=== PATIENT | male | born 1950 | race Caucasian/White ===

== ENCOUNTER 2017-01-24 14:41 | Emergency (ER) | payer SELFPAY ==
[2017-01-24 15:19] LABS: Hematocrit 46.4 % (42.0-52.0); Hemoglobin 15.4 gm/dL (13.5-18.0); Mean Cell Volume 89.4 fl (78-100); Mean Corpuscular Hemoglobin 29.7 pg (27-31); Mean Corpuscular Hgb Conc 33.2 g/dl (32-36); Mean Platelet Volume 9.7 fl (6.0-9.5); Neutrophil # 5.9 K/mm3 (1.3-6.0); Neutrophil % 78.3 % (42-75.0); Platelet Count 197 K/mm3 (150-450); Red Blood Count 5.19 M/mm3 (4.7-6.0); Red Cell Distribution Width 13.2 % (11.5-14.0); White Blood Count 7.6 K/mm3 (4.0-10.5)
[2017-01-24] MEDS ORDERED: IBUPROFEN 600 MG TABLET PO ONE (15:29)
[2017-01-24] MEDS ORDERED: IBUPROFEN 600 MG TABLET ONE (15:29)
[2017-01-24 15:36] LABS: ALT 207 U/L (19-67); AST 285 U/L (0-48); Albumin * 3.8 gm/dl (3.4-5.0); Alkaline Phosphatase * 101 U/L (50-170); Anion Gap 14.2 mmol/L (6.8-13.8); BUN/Creatinine Ratio 12.6 (9.0-21.6); Bilirubin, Total 2.5 mg/dL (0.0-1.1); Blood Urea Nitrogen 16 mg/dL (6-23); Ca. Corrected For Albumin 10.5 mg/dL (8.4-10.2); Calcium * 10.7 mg/dL (7.9-10.9); Chloride 103 mmol/L (97-106); Glucose * 121 mg/dL (70-110); Potassium 4.2 mmol/L (3.4-4.6); Sodium 141 mmol/L (132-142); Total Protein 7.9 gm/dL (6.2-8.2)
[2017-01-24 15:37] LABS: Troponin I Less than 0.017 ng/ml (0.00-0.10)
--- OUTSIDE RECORDS SUMMARY | 2017-01-24 15:38 | XMS REPORT | Continuity of Care Document ---
:1950 Author Organization [facility] ([facility]) Address [address] [place] [address] Phone [phone] Care Team Providers Name Role Phone Provider, No-Primary Care Primary Care Provider Unavailable Source Comments This disclosure is being made pursuant to the Care Everywhere program, applicable federal and state laws, and may not contain all informaitonavailable regarding this patient.[facility] ([facility]) Active Allergies and Adverse Reactions No Known Allergies Current Medications Prescription Sig. Disp. Refills Start Date End Date Status ofloxacin 0.3 % otic instill 5 Drops 5 mL 0 09/12/2014 Active solution into left ear 2 times daily. Indications: OTITIS EXTERNA hydrochlorothiazide 12.5 Take 1 Tab by 30 Tab 1 09/12/2014 Active mg tablet mouth daily. Indications: HYPERTENSION Active Problems Not on file Social History Tobacco Use Types Packs/Day Years Used Date Never Assessed Last Filed Vital Signs Vital Sign Reading Time Taken Blood Pressure 139/92 10/18/2015 4:09 PM ORGANIZATIONAL CONSULTANT Pulse 80 10/18/2015 4:09 PM ORGANIZATIONAL CONSULTANT Temperature 36.8 C (98.2 F) 10/18/2015 4:09 PM ORGANIZATIONAL CONSULTANT Respiratory Rate 16 10/18/2015 4:09 PM ORGANIZATIONAL CONSULTANT Height - - Weight 108.5 kg (239 lb 3.2 oz) 10/18/2015 4:09 PM ORGANIZATIONAL CONSULTANT Body Mass Index - - Oxygen Saturation - - Plan of Care Health Maintenance Due Date Last Done Comments HCV Screening 1950 Hepatitis B Vaccine (1 of 3 - Primary Series) 1950 Tdap Vaccine 12/07/1962 Lipid Disorder Screening 12/07/1969 Td Vaccine 12/07/1969 Colonoscopy 12/07/2001 Prostate Cancer Screening 12/07/2001 Zoster Vaccine 2011 Influenza Vaccine: Seasonal (#1) 04/20/2016 Results from Last 3 Months Not on file
--- OUTSIDE RECORDS SUMMARY | 2017-01-24 15:38 | XMS REPORT | Continuity of Care Document ---
:1950 Author Organization [facility] Address [place] [address] Care Team Providers Name Role Phone Unavailable Primary Care Provider Unavailable Source Comments This disclosure is being made pursuant to the [employer] program and maynot contain all information available regarding this patient.[facility] Active Allergies and Adverse Reactions Not on File Current Medications Be aware that medications may not be up to date as of this document. Alwaysverify current medications with the patient. Not on file Active Problems Not on file Social History Tobacco Use Types Packs/Day Years Used Date Never Assessed Plan of Care Health Maintenance Due Date Last Done Comments Retired-Pertussis Vaccine Adult 12/07/1970 Retired-Tetanus Vaccine Adult 12/07/1970 Colonoscopy 12/07/2001 Well Adult Visit 12/07/2001 Zoster Vaccine 60+ 2011 Retired-INFLUENZA VACCINE 05/21/2015 Results from Last 3 Months Not on file
--- NOTE | 2017-01-24 19:27 | ERNOTE ---
Chest Pain/Cardiac HPI Date of Service: 01/24/17 Chief Complaint: Chest Pain Time Seen by Provider: 01/24/17 14:55 Source: patient Exam Limitations: no limitations Immunizations: IMMUNIZATION HX History of Influenza Vaccine No Hx Pneumococcal Vaccination No Allergies/Adverse Reactions: Allergies No Known Allergies Allergy (Unverified 01/24/17 14:53) Home Medications: HOME MEDICATIONS NK [No Home Medication] 01/24/17 [Last Taken Unknown] Narrative: Patient presents for evaluation of chest pain. he has been having this constantly since 6am. Her localizes it with a finger to his left anterior chest. He relates this pain has been constant since this morning, worse with palpation, movement and deep breathing. He relates he was working in the garden yesterday but does not recall a specific injury. He denies any radiation. No SOB. No other chest pains. Has not seen anyone else for this. No vomiting. No abdominal pain. Timing: constant Severity/Quality: moderate Location: left chest Chest Pain Radiation: no radiation Activities at Onset: none Modifying Factors - Improves: Present: nothing Modifying Factors - Worsens: Present: breathing, movement, other - palpation Associated Symptoms: Absent: syncope, cough, shortness of breath, fever/chills, nausea, vomiting, abdominal pain Prior Chest Pain/Cardiac Workup: Reports: no prior cardiac workup Prior Treatment: Denies: recently seen Review of Systems - Review of Systems Constitutional: Absent: fever ENT: Absent: sore throat Respiratory: Present: See HPI Cardiology: Present: See HPI Gastrointestinal/Abdominal: Absent: abdominal pain Genitourinary: Absent: dysuria Musculoskeletal: Absent: back pain Skin: Absent: rash Neurological: Absent: weakness All Other Systems: All systems neg except as marked - Patient's Past Medical History Patient History - Medical: No pertinent hx Patient History - Cardiac/Respiratory: No pertinent hx Patient History - Cancer: No Hx of Cancer Patient History - Surgical Procedures: Other Patient History - Other: None - Social History Living Situations: home Psych History: No pertinent hx Alcohol Use: none Drug Use: none - Immunizations Hx Pneumococcal Vaccination: No History of Influenza Vaccine: No Physical Exam - Physical Exam General Appearance: Present: alert, no apparent distress Eye Exam: Normal inspection: bilateral, PERRL: bilateral Ears, Nose, Throat: Present: normal ENT inspection Neck: Present: normal inspection Respiratory: Present: no respiratory distress, normal breath sounds, no accessory muscle use, lungs clear, other - He has point anterior rib tenderness left CC junction. With palpation at this point location he jumps and has complete reproduction of his pain. Palpation of the chest wall completely reproduces his Sx. 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 Absent: motor weakness Skin Exam: Absent: skin rash ED Progress - Results and Orders Patient's Lab Results:: I have reviewed the patient's lab results. - Vital Signs Patient's Vital Signs:: I have reviewed the patient's vital signs. Vital Signs: Vital Signs 01/24/17 01/24/17 01/24/17 14:43 15:22 17:53 Temperature 36.7 C Pulse Rate 84 62 75 Respiratory 12 12 12 Rate Blood Pressure 166/98 140/100 163/115 O2 Sat by Pulse 95 95 95 Oximetry 01/24/17 18:20 Temperature Pulse Rate 80 Respiratory 18 Rate Blood Pressure 130/85 O2 Sat by Pulse 95 Oximetry - EKG EKG: NSR EKG read: Interp. by me EKG Comments: NSR rate 64. Non-specific changes, no STEMI. - X-Ray X-Ray #1 X-Ray: chest X-ray Comments: No acute process. Official report reviewed - CT/Ultrasound CT/Ultrasound Narrative: CT report reviweed. No PE US report reviewed. - Progress/Reassessment Chief Complaint: Chest Pain Progress Note-Subjective: 01/24/17 19:25 Pain completely reproducible. No STEMI, 2 trop negative well over 10 hours of continuous pain, nothign would suggest ACS. Nothing to suggest PE or aortoc dissection. he stopped him HTN meds but his BP came down nicely without treatment. No clear acute life threat found. He feels like going home, declines observation. D/W Dr Martini who will see the patient in the office. Stressed need for outpatient stress testing in the office. 01/24/17 19:34 Departure - Departure Clinical Impression: Chest wall pain Disposition: Home self-care Condition: Stable Instructions: Chest Wall Pain, [id number] Additional Instructions: Call Dr Martini's office tomorrow for an appointment. See your doctor this week for a re-check and to discuss stress testing. Ibuprofen. Return for increased pain, fever, trouble breathing or if your condition worsens or changes in any way.
[2017-01-24 20:11] VITALS: BP 146/116
== END 2017-01-24 19:44 | disposition home or self-care (01) ==
LOC: ER 14:41
DX: R07.89 Other chest pain (principal)

== ENCOUNTER 2017-03-15 14:43 | Emergency (ER) | payer SELFPAY ==
[2017-03-15] MEDS ORDERED: DIPHTH,PERTUSS(ACELL),TET VAC 0.5 ML VIAL IM ONE (14:54)
--- NOTE | 2017-03-15 15:09 | ERNOTE ---
Upper Extremity HPI - General Extremities Pain Location: 5th finger: right Time Seen by Provider: 03/15/17 14:58 Source: patient Exam Limitations: no limitations - Immun/Allergies/Home Medications Immunizations: IMMUNIZATION HX Immunizations Up to Date Yes History of Influenza Vaccine No Hx Pneumococcal Vaccination No Allergies/Adverse Reactions: Allergies Allergy/AdvReac Type Severity Reaction Status Date / Time No Known Allergies Allergy Verified 03/15/17 14:53 Home Medications: HOME MEDICATIONS Cephalexin Monohydrate [Keflex] 500 mg PO QID #15 cap 03/15/17 [Last Taken Unknown] oxyCODONE HCL/ACETAMINOPHEN [Percocet 5 MG/325 MG] 1 tab PO Q4H PRN #20 tab [Last Taken Unknown] - History of Present Illness Narrative: Patient is working at a [employer] and got his right little finger caught in the band of the saw and amputated his distal finger. Date (Duration): 03/15/17 Time (Timing): 14:00 Occurred: just prior to arrival Severity: mild Review of Systems - Review of Systems Constitutional: Absent: recent illness ENT: Absent: nasal drainage Respiratory: Absent: shortness of breath, cough Cardiology: Absent: chest pain Gastrointestinal/Abdominal: Absent: nausea, abdominal pain Genitourinary: Present: no symptoms reported Musculoskeletal: Present: See HPI Neurological: Absent: weakness, numbness - Patient's Past Medical History Patient History - Medical: No pertinent hx Patient History - Cardiac/Respiratory: No pertinent hx Patient History - Cancer: No Hx of Cancer Patient History - Surgical Procedures: Other Patient History - Other: None - Social History Living Situations: home Psych History: No pertinent hx Smoking Status: Never smoker Alcohol Use: none Drug Use: none - Immunizations Immunizations Up to Date: Yes Hx Pneumococcal Vaccination: No History of Influenza Vaccine: No Physical Exam - Physical Exam General Appearance: Present: wd/wn, alert, no apparent distress Respiratory: Present: no respiratory distress, normal breath sounds, no accessory muscle use, lungs clear Cardiovascular/Chest: Present: regular rate, rhythm, no murmur Extremity Exam: Present: normal except - - right fifth digit amputated distally , straight smooth wound surface, no bone exposed Neurological Exam: Present: alert, oriented, normal mood/affect Skin Exam: Present: normal color, warm/dry ED Progress - Vital Signs Patient's Vital Signs:: I have reviewed the patient's vital signs. Vital Signs: Vital Signs 03/15/17 14:49 Temperature 36.6 C Pulse Rate 88 Respiratory 16 Rate Blood Pressure 165/110 O2 Sat by Pulse 94 Oximetry - X-Ray X-Ray #1 X-Ray: finger - fifth right distal finger tip amputation Interpretation: Reviewed by me - Progress/Reassessment Chief Complaint: Hand Injury/Pain Progress Note-Subjective: 03/15/17 15:32 discussed with Crow Wilson, wet to dry dressing, give ancef IM and start keflex, follow up in office in two days Procedures Right 5th Digit Anesthesia: Marcaine 0.25%, Digital Block Departure Clinical Impression: Traumatic amputation of tip of finger of right hand - Departure Disposition: Home self-care Condition: Good Instructions: Traumatic Finger Amputation Additional Instructions: keep the finger dry and clean, take ibuprofen as needed for pain and the prescription pain medication if that does not help enough Referrals: Crow Wilson, PAC [[facility]] - 03/17/17 10:00 am Prescriptions: Cephalexin Monohydrate [Keflex] 500 mg PO QID #15 cap oxyCODONE HCL/ACETAMINOPHEN [Percocet 5 MG/325 MG] 1 tab PO Q4H PRN #20 tab PRN Reason: Pain
--- OUTSIDE RECORDS SUMMARY | 2017-03-15 15:10 | XMS REPORT | Continuity of Care Document ---
:1950 Author Organization [id number] [place] [address] Care Team Providers Name Role Phone Unavailable Primary Care Provider Unavailable Source Comments This disclosure is being made pursuant to the [employer] program and maynot contain all information available regarding this patient.[id number] Active Allergies and Adverse Reactions Not on [...]
[2017-03-15 15:15] VITALS: BP 139/96
[2017-03-15] MEDS ORDERED: ceFAZolin SODIUM 1 GM VIAL IM ONE (15:39)
[2017-03-15] MEDS ORDERED: ceFAZolin SODIUM 1 GM VIAL ONE (15:43)
== END 2017-03-15 16:15 | disposition home or self-care (01) ==
LOC: ER 14:43
PROC: 3E0T3BZ Introduction of Anesthetic Agent into Peripheral Nerves and Plexi, Percutaneous Approach (ICD-10-PCS; principal; 2017-03-15)
DX: S68.126A Partial traumatic metacarpophalangeal amputation of right little finger, initial encounter (principal); Z23 Encounter for immunization; W31.2XXA Contact with powered woodworking and forming machines, initial encounter; Y92.69 Other specified industrial and construction area as the place of occurrence of the external cause; Y99.0 Civilian activity done for income or pay

== ENCOUNTER 2017-03-17 11:59 | Day surgery (SDC) | payer SELFPAY ==
[~2017-03-17 11:59] MED LIST: RINGERS SOLUTION,LACTATED 1,000 ML IV PRN; ceFAZolin SODIUM 1 GM VIAL IV PRN
--- OUTSIDE RECORDS SUMMARY | 2017-03-17 12:14 | XMS REPORT | Continuity of Care Document ---
:1950 Author Organization [facility] [place] [address] Care Team Providers Name Role Phone Unavailable Primary Care Provider Unavailable Source Comments This disclosure is being made pursuant to the [employer] program and maynot contain all information available regarding this patient.[facility] Active Allergies and Adverse Reactions Not on [...]
[2017-03-17] MEDS ORDERED: RINGERS SOLUTION,LACTATED 1,000 ML IV ONE (13:45)
[2017-03-17] MEDS ORDERED: BUPIVACAINE HCL 50 ML VIAL IJ ONE ×2 (15:30)
[2017-03-17] MEDS ORDERED: BACITRACIN 50,000 UNITS VIAL IR ONE (15:35)
--- NOTE | 2017-03-17 16:51 | OR ---
Operative Report - Dictated Report Narrative: Date: 03/17/2017 Physician: Mathew Garcia M.D. Fire Fighting Equipment Specialist: Buzz Curiel PA-C Preoperative diagnosis: Traumatic amputation of right small finger distal phalanx Postoperative diagnosis: Traumatic amputation of right small finger distal phalanx Procedure: Revision amputation of right small finger Anesthesia: Digital block with 0.5% Marcaine without epinephrine Complications: None Estimated blood loss: Minimal Tourniquet time: 27 Minutes with Hayley drain finger tourniquet Specimens: None Retained implants: None Drains: None Indications: Mr. Zhou Is a 66 year-old [facility] male who sustained a traumatic amputation through his right small finger distal phalanx when it got caught in the drive belt of a large saw at the [employer] he works at. He was initially seen in the [facility] emergency department where he received a dose of IV antibiotics and underwent irrigation of the wound. The wound was dressed with a biologic dressing and he was sent home with oral antibiotics and instructions to follow- up in orthopedic clinic. He presented to orthopedic clinic 2 days following the injury for evaluation. Evaluation revealed a traumatic transverse amputation through the DIP joint leaving behind a few small exposed fragments of distal phalanx. I counseled him on treatment options and recommended revision amputation of his right small finger to include bony shortening with primary closure. The risks and benefits of surgery were discussed including, but not limited to, bleeding, infection, stiffness, persistent pain, wound complications, and need for additional procedures. Consent was obtained in the clinic. Procedure: After marking the correct extremity in the preoperative holding area, a timeout was performed in the operating room. IV antibiotics consisting of 2 g of Ancef were administered prior to the procedure. The right upper extremity was then prepped and draped in the usual sterile fashion. A right small finger digital block was performed using 6 mL of 0.5% Marcaine without epinephrine. Once the block was set up we turned our attention to the traumatic amputation site. This appeared to basically go through the DIP joint leaving behind 3 small fragments of the proximal aspect of the distal phalanx. These were removed and the soft tissue was mechanically debrided of any nonviable looking tissue and any gross contamination. Following debridement the head of the middle phalanx was exposed and we determined the skin edges would be under significant tension trying to close it primarily. We then shortened the middle phalanx by removing just the head with a bone cutter. Following this the volar and dorsal skin flaps were able to be brought together with little to no tension. Next we identified the flexor digitorum profundus pulled it up out of the wound and divided this as proximally as possible. The digital nerves were identified and dissected out and sharply divided as proximally as possible. The digital arteries were also identified and cauterized to help control bleeding. The cut end of the middle phalanx was sealed with bone wax. At this point we let down the tourniquet and hemostasis was obtained using a combination of direct pressure and bipolar electrocautery. The wound was then copiously irrigated with 3 L of normal saline/bacitracin irrigation. The skin was then closed in an interrupted fashion with 4-0 nylon suture. The wound was dressed with Xeroform, 4 x 4's, tube gauze, and Coban dressing. All sponge, needle, blade, and instrument counts were correct prior to closing the wounds. The patient was transferred to the post-anesthesia care unit in stable condition.
[2017-03-17 17:27] VITALS: BP 169/106
== END 2017-03-17 12:00 | disposition home or self-care (01) ==
LOC: AMB 11:59
PROVIDERS: ATTEND Orthopaedic Surgery
PROC: 0X6N0Z3 Detachment at Right Index Finger, Low, Open Approach (ICD-10-PCS; principal; 2017-03-17 15:00)
DX: S68.616A Complete traumatic transphalangeal amputation of right little finger, initial encounter (principal); I10 Essential (primary) hypertension; J45.909 Unspecified asthma, uncomplicated; W31.2XXA Contact with powered woodworking and forming machines, initial encounter; Z68.43 Body mass index [BMI] 50.0-59.9, adult